=== PATIENT | female | born 1975 | race African-American/Black ===

== ENCOUNTER 2017-01-06 17:59 | Emergency (ER) | payer SELFPAY ==
[~2017-01-06] VITALS: Ht 165.1 cm; Wt 54.4 kg
[2017-01-06 18:24] VITALS: BP 113/71
== END 2017-01-06 22:12 | disposition home or self-care (01) ==
LOC: ER 18:02
DX: M79.661 Pain in right lower leg (principal); Z88.6 Allergy status to analgesic agent
CPT/HCPCS: 93971; 99284; A4606; Z7610